=== PATIENT | female | born 1930 | race Caucasian/White ===

== ENCOUNTER → 2016-07-22 | Outpatient (CLI) | payer MEDICARE, OTHER ==
[~2016-07-22] MED LIST: AMIT50TA3 PO; ASP81CT PO; ASPI81TA55 PO; ATOR10TA PO; ATOR10TA56; BISA10SU6 RC; CARB15DR23; FLX20C PO; FRSM40T PO; GUAI-585 PO; HYDR-33; HYDR-3702 PO; IBUP-1096 PO; KCL20TCR PO; LISI1TAB6 PO; LISI1TAB8 PO; LISI5TAB14 PO; METO-272 PO; METO-274 PO; METO50TA7 PO; MIRT15TA98 PO; MNTL10T PO; NF-CARBPE EACH EAR; NIFE60TA11 PO; OMEP20CA12 PO; OXYC1TAB87 PO; OXYGEN INH; POTA10TA6 PO; RISE35TA PO; SENN-126 PO; SPIR25TA PO; SPRN25T
--- NOTE | 2016-07-22 16:35 | Diagnostic Imaging Report ---
INDICATION: Left humerus fracture. EXAMINATION: Two views of the left humerus were obtained. FINDINGS: There is an oblique fracture of the proximal diaphysis of the left humerus. IMPRESSION: Angulated and medially displaced fracture of the proximal shaft of the left humerus. Dictated by: Dictated on workstation # [id number]
== END ==
LOC: RAD 16:05
PROVIDERS: ATTEND Family Medicine
DX: S42.202A Unspecified fracture of upper end of left humerus, initial encounter for closed fracture (principal); X58.XXXA Exposure to other specified factors, initial encounter
CPT/HCPCS: 73060

== ENCOUNTER → 2016-07-26 | Outpatient (REF) | payer MEDICARE, OTHER ==
[2016-07-29 10:30] LABS: CLARITY,URINE Clear; COLOR,URINE Yellow
[2016-07-29 10:31] LABS: BILIRUBIN,URINE Negative (Negative); GLUCOSE, URINE (UA) Negative (Negative); LEUKOCYTE ESTERASE, URINE Negative (Negative); UROBILINOGEN,URINE 0.2 mg/dL (0.2-1.0)
== END ==
LOC: LAB 10:21
PROVIDERS: ATTEND Orthopaedic Surgery
DX: Z01.812 Encounter for preprocedural laboratory examination (principal)
CPT/HCPCS: 81003

== ENCOUNTER → 2016-07-26 | Outpatient (CLI) | payer MEDICARE, OTHER ==
[2016-07-26 13:46] LABS: MEAN PLATELET VOLUME 10.9 FL (6.0-9.5); WHITE BLOOD COUNT 11.52 10^3uL (4.0-11.0)
[2016-07-26 13:56] LABS: ANION GAP 14.6 MEQ/L (3-15)
[2016-07-26 14:03] LABS: MEAN CORPUSCULAR HGB CONC 31.6 g/dL (31.0-37.0)
--- NOTE | 2016-07-26 15:45 | Diagnostic Imaging Report ---
INDICATION: Preop internal fixation of the humerus. PA and lateral chest. FINDINGS: There is a displaced oblique fracture of the proximal left humerus. There is scoliosis of the thoracic spine convex to the right. There is a dual-chamber pacemaker. Heart size is upper limits of normal. Pulmonary vascularity is normal. Lungs are clear. IMPRESSION: No acute abnormalities in the chest. Dictated by: Dictated on workstation # [id number]
[2016-07-26 16:24] LABS: BILIRUBIN,URINE Negative (Negative); CLARITY,URINE Clear; COLOR,URINE Yellow; GLUCOSE, URINE (UA) Negative (Negative); LEUKOCYTE ESTERASE, URINE Negative (Negative); UROBILINOGEN,URINE 0.2 mg/dL (0.2-1.0)
== END ==
LOC: LAB 13:16
PROVIDERS: ATTEND Orthopaedic Surgery
DX: Z01.818 Encounter for other preprocedural examination (principal)
CPT/HCPCS: 36415; 71020; 80048; 81003; 85027; 85610; 85730; 93005

== ENCOUNTER → 2016-08-27 | Outpatient (REF) | payer MEDICARE, OTHER ==
[2016-08-27 15:20] LABS: ANION GAP 13.3 MEQ/L (3-15)
== END ==
LOC: LAB 14:16
PROVIDERS: ATTEND Family Medicine
DX: I50.22 Chronic systolic (congestive) heart failure (principal)
CPT/HCPCS: 80048

== ENCOUNTER 2016-09-22 16:12 | Emergency (ER) | payer MEDICARE, OTHER ==
[~2016-09-22] VITALS: Ht 152.4 cm; Wt 61.0 kg
[2016-09-22] MEDS ORDERED: SODIUM CHLORIDE FLUSH 3 ML SYR IV ONE (16:40)
[2016-09-22] MEDS ORDERED: SODIUM CHLORIDE FLUSH 10 ML SYR IV PRN (16:40)
[2016-09-22 16:52] LABS: BASOPHILS % (AUTO) 1 % (0-2); EOSINOPHILS # (AUTO) 0.3 10^3uL; EOSINOPHILS % (AUTO) 3 % (0-4); LYMPHOCYTES # (AUTO) 1.7 X10^3; MEAN CORPUSCULAR VOLUME 81 FL (80-100); MEAN PLATELET VOLUME 10.5 FL (6.0-9.5); MONOCYTES # (AUTO) 1.1 X10^3; MONOCYTES % (AUTO) 12 % (3-11); NEUTROPHILS # (AUTO) 6.3 X10^3; NEUTROPHILS % (AUTO) 67 % (51-67); PLATELET COUNT 300 10^3uL (150-450)
[2016-09-22 16:53] LABS: MEAN CORPUSCULAR HEMOGLOBIN 24.4 PG (26.0-34.0); MEAN CORPUSCULAR HGB CONC 30.3 g/dL (31.0-37.0)
[2016-09-22 17:05] LABS: ALBUMIN 3.2 g/dL (3.4-5.0); ALKALINE PHOSPHATASE 121 U/L (38-126); ANION GAP 12.2 MEQ/L (3-15); BUN/CREATININE RATIO 23 (10-20); CALCULATED IONIZED CALCIUM 3.8 mg/dL (3.8-4.6); TOTAL PROTEIN 5.9 g/dL (6.4-8.5)
[2016-09-22 17:27] LABS: CREATINE KINASE < 20 U/L (30-135)
[2016-09-22 19:01] VITALS: BP 181/70
== END 2016-09-22 19:03 | disposition home or self-care (01) ==
LOC: ED 16:14
DX: I25.119 Atherosclerotic heart disease of native coronary artery with unspecified angina pectoris (principal); I11.0 Hypertensive heart disease with heart failure; I50.9 Heart failure, unspecified; Z95.0 Presence of cardiac pacemaker
CPT/HCPCS: 36415; 71010; 80053; 82550; 82553; 83880; 84443; 84484; 85025; 85379; 85610; 86140; 93005; 99283; 99285

== ENCOUNTER → 2016-09-24 | Outpatient (REF) | payer MEDICARE, OTHER ==
[2016-09-24 22:51] LABS: IRON 12 ug/dL (50-170); UNBOUND IRON CONTENT 336 ug/dl (126-382)
== END ==
LOC: LAB 14:45
PROVIDERS: ATTEND Family Medicine
DX: D64.89 Other specified anemias (principal); D64.9 Anemia, unspecified
CPT/HCPCS: 82728; 83540; 83550

== ENCOUNTER → 2016-10-08 | Outpatient (REF) | payer MEDICARE, OTHER ==
[2016-10-08 15:56] LABS: ANION GAP 13.8 MEQ/L (3-15)
== END ==
LOC: LAB 15:01
PROVIDERS: ATTEND Family Medicine
DX: I50.22 Chronic systolic (congestive) heart failure (principal)
CPT/HCPCS: 80048

== ENCOUNTER → 2016-10-29 | Outpatient (REF) | payer MEDICARE, OTHER ==
[2016-10-29 15:32] LABS: BASOPHILS % (AUTO) 0 % (0-2); EOSINOPHILS # (AUTO) 0.3 10^3uL; EOSINOPHILS % (AUTO) 3 % (0-4); LYMPHOCYTES # (AUTO) 2.4 X10^3; MEAN CORPUSCULAR VOLUME 83 FL (80-100); MEAN PLATELET VOLUME 12.6 FL (6.0-9.5); MONOCYTES % (AUTO) 10 % (3-11); NEUTROPHILS % (AUTO) 62 % (51-67); PLATELET COUNT 270 10^3uL (150-450); WHITE BLOOD COUNT 9.69 10^3uL (4.0-11.0)
[2016-10-29 15:34] LABS: MEAN CORPUSCULAR HEMOGLOBIN 24.8 PG (26.0-34.0); MEAN CORPUSCULAR HGB CONC 29.9 g/dL (31.0-37.0)
== END ==
LOC: LAB 14:39
PROVIDERS: ATTEND Family Medicine
DX: D50.8 Other iron deficiency anemias (principal); I50.22 Chronic systolic (congestive) heart failure
CPT/HCPCS: 80048; 85025